=== PATIENT | male | born 1990 | race Hispanic/Latino ===

== ENCOUNTER 2023-10-06 07:54 | Inpatient (IN) | payer BC ==
[2023-10-02 13:18] LABS: BASOPHILS # (AUTO) 0.1 (0.0-0.1); BASOPHILS % 0.5 % (0.0-1.0); EOSINOPHILS # (AUTO) 0.1 (0.0-0.4); EOSINOPHILS % 1.2 % (0.0-6.0); HEMATOCRIT 44.7 % (38.2-49.6); HEMOGLOBIN 14.8 g/dL (14.0-18.0); LYMPHOCYTES # (AUTO) 2.4 (1.0-3.2); LYMPHOCYTES % 23.1 % (18.0-39.1); MEAN CORPUSCULAR HEMOGLOBIN 28.8 pg (28-32); MEAN CORPUSCULAR HGB CONC 33.1 g/dL (31-35); MONOCYTES # (AUTO) 0.6 (0.2-0.8); MONOCYTES % 5.7 % (4.4-11.3); NEUTROPHILS # (AUTO) 7.2 (2.1-6.9); NEUTROPHILS % 69.1 % (38.7-80.0); PLATELET COUNT 210 x10e3/uL (140-360); RED BLOOD COUNT 5.14 x10e6/uL (4.3-5.7); RED CELL DISTRIBUTION WIDTH 12.3 % (11.7-14.4); WHITE BLOOD COUNT 10.46 x10e3/uL (4.8-10.8)
[~2023-10-06] VITALS: Ht 193 cm; Wt 202.3 kg
[~2023-10-06 07:54] MED LIST: LISINOPRIL10 MG PO; MULTI-VITAMIN1 EACH PO; SAXENDA3 MG/0.5 M SC
[2023-10-06] MEDS ORDERED: SCOPOLAMINE 1 MG PATCH ONE (08:26)
[2023-10-06] MEDS ORDERED: CEFAZOLIN SODIUM 2 GM ONE (08:26)
[2023-10-06] MEDS ORDERED: ONDANSETRON HCL INJ 2MG/ML 2ML 2 MG/ML VIAL IV PRN (08:45)
[2023-10-06] MEDS ORDERED: LACTATED RINGER'S 1,000 ML IV SCH (08:45)
[2023-10-06] MEDS ORDERED: Morphine 2mg Syringe 2 MG/ML SYR IV PRN (08:45)
[2023-10-06] MEDS ORDERED: SCOPOLAMINE 1 MG PATCH TOP SCH (08:45)
[2023-10-06] MEDS ORDERED: LACTATED RINGER'S 1,000 ML BAG IV ONE (08:47)
[2023-10-06] MEDS ORDERED: BUPIVACAINE 0.25% 30ML SDV ONE (08:48)
[2023-10-06] MEDS ORDERED: SUGAMMADEX SODIUM 200 MG/2 ML VIAL IV ONE ×2 (12:25→12:38)
[2023-10-06] MEDS ORDERED: FENTANYL CITRATE/PF 100MCG/2 ML INJ ONE (13:12)
[2023-10-06 13:36] VITALS: BP 152/94; PULSE 77; RESP 20; TEMP 97.9; O2SAT 95
[2023-10-06 13:41] VITALS: BP 152/94; PULSE 77; RESP 20; TEMP 97.9; O2SAT 95
[2023-10-06 13:43] VITALS: BP 152/94; PULSE 77; RESP 20; TEMP 97.9; O2SAT 95
[2023-10-06] MEDS: HYDROCODONE/APAP 7.5MG-325MG 1 EA TAB PO PRN ×2 (14:09→18:44)
[2023-10-06 17:25] VITALS: PULSE 86; RESP 18; O2SAT 98
[2023-10-06] MEDS ORDERED: ENOXAPARIN SOD INJ 40 MG/0.4 ML SYR SC SCH (20:00)
== END 2023-10-06 19:05 | disposition home or self-care (01) | DRG 621 ==
LOC: OR 07:54 → PACU V 08:42 → MED/SURG 13:32
PROVIDERS: ADMIT Internal Medicine; ATTEND Internal Medicine
PROC: 0FB24ZX Excision of Left Lobe Liver, Percutaneous Endoscopic Approach, Diagnostic (ICD-10-PCS; 2023-10-06)
PROC: 0DB64Z3 Excision of Stomach, Percutaneous Endoscopic Approach, Vertical (ICD-10-PCS; principal; 2023-10-06 10:55)
DX: E66.01 Morbid (severe) obesity due to excess calories (principal); Z68.43 Body mass index [BMI] 50.0-59.9, adult; R16.0 Hepatomegaly, not elsewhere classified; I10 Essential (primary) hypertension; Z87.891 Personal history of nicotine dependence; K76.0 Fatty (change of) liver, not elsewhere classified
CPT/HCPCS: 36415; 85025; 88307; 88313; 93005; 94799; J0690; J1650; J2270; J2405